=== PATIENT | female | born 1980 | race Caucasian/White ===

== ENCOUNTER 2017-04-14 09:35 | Inpatient (IN) ==
[2017-04-14] MEDS ORDERED: cefTRIAXone 1,000 MG in SODIUM CHLORIDE 0.9% 100 ML IV STA (10:52)
[2017-04-14] MEDS ORDERED: SODIUM CHLORIDE 0.9% 1,000 ML IV STA (10:52)
[2017-04-14] MEDS ORDERED: VANCOMYCIN INJ 750 MG in SODIUM CHLORIDE 0.9% 250 ML IV STA (10:52)
[2017-04-14] MEDS ORDERED: VANCOMYCIN INJ 1,000 MG in SODIUM CHLORIDE 0.9% 250 ML IV STA (11:07)
[2017-04-14] MEDS ORDERED: cefTRIAXone 1,000 MG VIAL ONE (11:16)
[2017-04-14 11:17] LABS: Basophils # 0.1 10*3/uL (0.0-0.2); Basophils % 0.2 % (0.0-0.8); Hematocrit 44.1 VOL% (35.7-47.0); Hemoglobin 15.4 GM/DL (12.0-16.0); Immature Granulocytes % 0.4 %; Immature Granulocytes Absolute 0.09 #; Lymphocytes # 1.1 10*3/uL (1.4-4.0); Lymphocytes % 5.3 % (21.3-54.2); Mean Corpuscular HGB Conc 34.9 GM/DL (32-36); Mean Corpuscular Hemoglobin 32 PG (27-34); Mean Corpuscular Volume 92.3 FL (87-102); Mean Platelet Volume 10.9 FL (9.6-12.0); Neutrophils # 17.9 10*3/uL (1.4-7.4); Neutrophils % 89.1 % (38.7-73.9); Platelet Count 261 T/CUMM (130-400); Red Blood Count 4.78 MC/CUMM (3.8-5.5); Red Cell Distribution Width 11.7 % (9.3-17.3); White Blood Count 20.1 T/CUMM (4-12)
[2017-04-14] MEDS ORDERED: VANCOMYCIN INJ 1,000 MG in SODIUM CHLORIDE 0.45% 250 ML IV STA (11:19)
[2017-04-14] MEDS ORDERED: VANCOMYCIN 1,000 MG VIAL ONE (11:23)
[2017-04-14 11:51] LABS: Albumin 2.9 G/DL (3.4-5.0); Bilirubin,Total 0.5 MG/DL (0.2-1.0); Calcium 8.7 MG/DL (8.5-10.1); Osmolality,Calculated 264.4 MOS/KG (273-304); Potassium 3.8 MMOL/L (3.5-5.1); Total Protein 7.1 G/DL (6.4-8.3)
[2017-04-14 13:25] LABS: Hypochromasia 1+; Lymphocytes 7 % (20-55); Platelet Estimate Adequate; Segmented Neutrophils 88 % (50-85); Total Cells Counted 100
[2017-04-14] MEDS ORDERED: ACETAMINOPHEN 325 MG TABLET PO PRN (14:49)
[2017-04-14] MEDS ORDERED: NICOTINE 21 MG/24 HR PATCH TRANSDERM PRN (15:34)
[2017-04-14] MEDS ORDERED: diphenhydrAMINE CAP 25 MG CAPSULE PO PRN (15:34)
[2017-04-14] MEDS ORDERED: HYDROmorphone 2 MG/1 ML VIAL ONE (15:53)
[2017-04-14] MEDS: SODIUM CHLORIDE 0.9% 1,000 ML IV SCH (15:59)
[2017-04-14] MEDS ORDERED: HYDROmorphone 2 MG/1 ML VIAL IV SCH (16:00)
[2017-04-14] MEDS: PIPERACILLIN/TAZOBACTAM 3,375 MG in SODIUM CHLORIDE 0.9% 100 ML IV SCH (18:34)
[2017-04-14] MEDS: HYDROmorphone 2 MG/1 ML VIAL IV PRN (19:37)
[2017-04-15] MEDS: DOCUSATE SODIUM 100 MG CAPSULE PO SCH ×3 (00:31→21:13)
[2017-04-15] MEDS: VANCOMYCIN INJ 750 MG in SODIUM CHLORIDE 0.9% 150 ML IV SCH ×3 (00:32→21:18)
[2017-04-15] MEDS: ONDANSETRON 4 MG/2 ML VIAL IV PRN ×3 (00:41→21:20)
[2017-04-15] MEDS: HYDROmorphone 2 MG/1 ML VIAL IV PRN ×3 (00:42→21:21)
[2017-04-15] MEDS: PIPERACILLIN/TAZOBACTAM 3,375 MG in SODIUM CHLORIDE 0.9% 100 ML IV SCH ×3 (03:12→21:13)
[2017-04-15 06:45] LABS: Basophils # 0.1 10*3/uL (0.0-0.2); Basophils % 0.4 % (0.0-0.8); Eosinophils % 0.1 % (0.00-10.9); Hematocrit 43.3 VOL% (35.7-47.0); Immature Granulocytes % 0.6 %; Immature Granulocytes Absolute 0.12 #; Lymphocytes % 5.1 % (21.3-54.2); Mean Corpuscular HGB Conc 34.6 GM/DL (32-36); Mean Corpuscular Hemoglobin 33 PG (27-34); Mean Corpuscular Volume 93.9 FL (87-102); Monocytes # 1.3 10*3/uL (0.11-0.8); Neutrophils # 16.7 10*3/uL (1.4-7.4); Neutrophils % 86.8 % (38.7-73.9); Platelet Count 273 T/CUMM (130-400); Red Blood Count 4.61 MC/CUMM (3.8-5.5); Red Cell Distribution Width 11.7 % (9.3-17.3); White Blood Count 19.3 T/CUMM (4-12)
[2017-04-15] MEDS: SODIUM CHLORIDE 0.9% 1,000 ML IV SCH ×3 (06:58→14:28)
[2017-04-15 07:19] LABS: Albumin 2.5 G/DL (3.4-5.0); Bilirubin,Total 0.7 MG/DL (0.2-1.0); Calcium 8.5 MG/DL (8.5-10.1); Magnesium 1.8 MG/DL (1.8-2.4); Osmolality,Calculated 269.1 MOS/KG (273-304); Potassium 4.4 MMOL/L (3.5-5.1); Total Protein 5.7 G/DL (6.4-8.3)
[2017-04-15] MEDS: PANTOPRAZOLE 40 MG TABLET PO SCH (09:57)
[2017-04-15] MEDS ORDERED: LIDOCAINE 1%/EPI INJ 20 ML VIAL ONE (10:38)
[2017-04-15] MEDS ORDERED: BUPIVACAINE 0.25% 50 ML VIAL ONE (10:38)
[2017-04-15] MEDS ORDERED: SCOPOLAMINE 1.5 MG PATCH TRANSDERM ONE ×2 (10:44→10:46)
[2017-04-15] MEDS ORDERED: SEVOFLURANE 1 UNIT/15 MINUTE INH ONE (11:56)
[2017-04-15] MEDS ORDERED: PROPOFOL 200 MG/20 ML VIAL IV ONE (11:56)
[2017-04-15] MEDS ORDERED: SUCCINYLCHOLINE 200 MG/10 ML VIAL ONE (11:57)
[2017-04-15] MEDS ORDERED: fentaNYL 100 MCG/2 ML VIAL ONE (11:57)
[2017-04-15] MEDS ORDERED: DEXAMETHASONE 10 MG/1 ML VIAL ONE (11:57)
[2017-04-15] MEDS ORDERED: ONDANSETRON 4 MG/2 ML VIAL ONE ×2 (11:57→12:26)
[2017-04-15] MEDS ORDERED: ROCURONIUM 100 MG/10 ML VIAL IV ONE (11:58)
[2017-04-15] MEDS ORDERED: HYDROmorphone 2 MG/1 ML VIAL ONE (12:26)
[2017-04-15] MEDS ORDERED: ONDANSETRON 4 MG/2 ML VIAL IV PRN (12:29)
[2017-04-15] MEDS ORDERED: HYDROmorphone 2 MG/1 ML VIAL IV PRN (12:29)
[2017-04-15] MEDS ORDERED: LACTATED RINGERS 1,000 ML IV SCH (12:30)
[2017-04-16] MEDS: SODIUM CHLORIDE 0.9% 1,000 ML IV SCH ×4 (00:13→23:22)
[2017-04-16] MEDS: PIPERACILLIN/TAZOBACTAM 3,375 MG in SODIUM CHLORIDE 0.9% 100 ML IV SCH ×2 (04:40→16:10)
[2017-04-16 07:22] LABS: Basophils % 0.2 % (0.0-0.8); Hematocrit 35.8 VOL% (35.7-47.0); Immature Granulocytes % 0.6 %; Immature Granulocytes Absolute 0.13 #; Lymphocytes # 1.4 10*3/uL (1.4-4.0); Lymphocytes % 5.8 % (21.3-54.2); Mean Corpuscular HGB Conc 34.9 GM/DL (32-36); Mean Corpuscular Hemoglobin 33 PG (27-34); Mean Platelet Volume 10.9 FL (9.6-12.0); Monocytes # 1.9 10*3/uL (0.11-0.8); Monocytes % 8.3 % (1.7-12.7); Neutrophils # 19.8 10*3/uL (1.4-7.4); Neutrophils % 85.1 % (38.7-73.9); Platelet Count 253 T/CUMM (130-400); Red Blood Count 3.85 MC/CUMM (3.8-5.5); Red Cell Distribution Width 11.8 % (9.3-17.3); White Blood Count 23.3 T/CUMM (4-12)
[2017-04-16 07:25] LABS: Hemoglobin 12.5 GM/DL (12.0-16.0)
[2017-04-16] MEDS: HYDROmorphone 2 MG/1 ML VIAL IV PRN ×3 (07:29→20:26)
[2017-04-16 07:37] LABS: Giant Platelets Few; Hypochromasia 1+; Lymphocytes 4 % (20-55); Ovalocytes Slight; Platelet Estimate Adequate; Segmented Neutrophils 91 % (50-85); Total Cells Counted 100
[2017-04-16] MEDS: SODIUM HYPOCHLORITE 0.25% IRRIG 473 ML BOTTLE TOP SCH (07:45)
[2017-04-16 07:46] LABS: Bilirubin,Total 0.5 MG/DL (0.2-1.0); Potassium 4.4 MMOL/L (3.5-5.1)
[2017-04-16] MEDS: VANCOMYCIN INJ 750 MG in SODIUM CHLORIDE 0.9% 150 ML IV SCH (09:08)
[2017-04-16] MEDS: DOCUSATE SODIUM 100 MG CAPSULE PO SCH ×2 (09:09→20:26)
[2017-04-16] MEDS: PANTOPRAZOLE 40 MG TABLET PO SCH (09:09)
[2017-04-16 10:59] LABS: Osmolality,Calculated 276.1 MOS/KG (273-304); Potassium 4.1 MMOL/L (3.5-5.1)
[2017-04-16] MEDS ORDERED: SODIUM CHLORIDE 0.9% 1,000 ML IV ONE (11:08)
[2017-04-16] MEDS: LINEZOLID INJ 600 MG in PREMIX 1 EACH IV SCH (12:32)
[2017-04-16] MEDS: ONDANSETRON 4 MG/2 ML VIAL IV PRN (12:32)
[2017-04-16] MEDS ORDERED: PROMETHAZINE INJ 12.5 MG in SODIUM CHLORIDE 0.9% 50 ML IV PRN (14:19)
[2017-04-16] MEDS: PROMETHAZINE 25 MG/1 ML VIAL IM PRN (14:46)
[2017-04-16 16:22] LABS: HIV Antigen/Antibody Result Nonreactive (Nonreactive)
[2017-04-16 18:29] LABS: Apearance,Urine Slightly Hazy (Clear); Bacteria,Urine Occasional /HPF (Few); Bilirubin,Urine Negative (Negative); Blood, Urine Large mg/dL (Negative); Glucose,Urine (UA) Negative (Negative); Ketones,Urine Negative (Negative); Nitrite,Urine Negative (Negative); Protein,Urine Negative; RBC,Urine 2 /HPF (0-4); Squamous Epithelial Cell,Urine Occasional /HPF (0-10); Urine Color Straw (Yellow); Urine Specific Gravity 1.003 (1.001-1.035); Urine Urobilinogen < 2.0 EU/DL (0.2-1.0); WBC,Urine 2 /HPF (0-6)
[2017-04-16 20:05] LABS: Barbiturates Screen,Urine Negative (Negative); Benzodiazepines Screen,Urine Negative (Negative); Cannabinoid Screen,Urine Positive (Negative); Opiate Screen,Urine Positive (Negative); Phencyclidine Screen,Urine Negative (Negative)
[2017-04-17] MEDS: LINEZOLID INJ 600 MG in PREMIX 1 EACH IV SCH ×3 (00:08→23:23)
[2017-04-17] MEDS: PROMETHAZINE 25 MG/1 ML VIAL IM PRN (01:58)
[2017-04-17] MEDS: HYDROmorphone 2 MG/1 ML VIAL IV PRN ×5 (02:05→21:11)
[2017-04-17] MEDS: PIPERACILLIN/TAZOBACTAM 3,375 MG in SODIUM CHLORIDE 0.9% 100 ML IV SCH ×2 (05:02→16:45)
[2017-04-17 06:31] LABS: Basophils % 0.2 % (0.0-0.8); Eosinophils % 0.2 % (0.00-10.9); Hemoglobin 11.1 GM/DL (12.0-16.0); Immature Granulocytes % 0.6 %; Immature Granulocytes Absolute 0.07 #; Lymphocytes # 1.1 10*3/uL (1.4-4.0); Lymphocytes % 8.8 % (21.3-54.2); Mean Corpuscular HGB Conc 34.7 GM/DL (32-36); Mean Corpuscular Hemoglobin 32 PG (27-34); Mean Corpuscular Volume 93.3 FL (87-102); Mean Platelet Volume 10.9 FL (9.6-12.0); Monocytes % 7.9 % (1.7-12.7); Neutrophils # 10.2 10*3/uL (1.4-7.4); Neutrophils % 82.3 % (38.7-73.9); Platelet Count 240 T/CUMM (130-400); Red Blood Count 3.43 MC/CUMM (3.8-5.5); Red Cell Distribution Width 11.9 % (9.3-17.3); White Blood Count 12.3 T/CUMM (4-12)
[2017-04-17 06:52] LABS: Calcium 7.8 MG/DL (8.5-10.1); Magnesium 2.1 MG/DL (1.8-2.4); Osmolality,Calculated 279.8 MOS/KG (273-304); Potassium 4.2 MMOL/L (3.5-5.1)
[2017-04-17] MEDS: DOCUSATE SODIUM 100 MG CAPSULE PO SCH ×2 (08:42→21:01)
[2017-04-17] MEDS: PANTOPRAZOLE 40 MG TABLET PO SCH (08:42)
[2017-04-17] MEDS: SODIUM HYPOCHLORITE 0.25% IRRIG 473 ML BOTTLE TOP SCH (08:44)
[2017-04-17] MEDS: SODIUM CHLORIDE 0.9% 1,000 ML IV SCH ×3 (08:44→23:32)
[2017-04-17] MEDS: ONDANSETRON 4 MG/2 ML VIAL IV PRN ×2 (16:46→21:01)
[2017-04-17 21:47] LABS: Apearance,Urine Slightly Hazy (Clear); Bacteria,Urine Occasional /HPF (Few); Bilirubin,Urine Negative (Negative); Blood, Urine Large mg/dL (Negative); Glucose,Urine (UA) Negative (Negative); Ketones,Urine Negative (Negative); Nitrite,Urine Negative (Negative); Protein,Urine Negative; RBC,Urine <1 /HPF (0-4); Squamous Epithelial Cell,Urine Occasional /HPF (0-10); Urine Color Straw (Yellow); Urine Specific Gravity 1.004 (1.001-1.035); Urine Urobilinogen < 2.0 EU/DL (0.2-1.0); WBC,Urine 1 /HPF (0-6)
[2017-04-18] MEDS: ONDANSETRON 4 MG/2 ML VIAL IV PRN ×2 (01:30→19:52)
[2017-04-18] MEDS: HYDROmorphone 2 MG/1 ML VIAL IV PRN ×5 (01:33→21:57)
[2017-04-18] MEDS: PROMETHAZINE 25 MG/1 ML VIAL IM PRN (02:38)
[2017-04-18] MEDS: PIPERACILLIN/TAZOBACTAM 3,375 MG in SODIUM CHLORIDE 0.9% 100 ML IV SCH ×2 (04:12→16:27)
[2017-04-18 06:37] LABS: Basophils % 0.3 % (0.0-0.8); Eosinophils # 0.1 10*3/uL (0.0-0.87); Eosinophils % 0.6 % (0.00-10.9); Hematocrit 33.9 VOL% (35.7-47.0); Hemoglobin 11.9 GM/DL (12.0-16.0); Immature Granulocytes % 0.3 %; Immature Granulocytes Absolute 0.04 #; Lymphocytes # 1.1 10*3/uL (1.4-4.0); Lymphocytes % 9.6 % (21.3-54.2); Mean Corpuscular HGB Conc 35.1 GM/DL (32-36); Mean Corpuscular Hemoglobin 32 PG (27-34); Mean Corpuscular Volume 92.1 FL (87-102); Mean Platelet Volume 10.4 FL (9.6-12.0); Monocytes # 0.9 10*3/uL (0.11-0.8); Monocytes % 8.2 % (1.7-12.7); Neutrophils # 9.3 10*3/uL (1.4-7.4); Platelet Count 238 T/CUMM (130-400); Red Blood Count 3.68 MC/CUMM (3.8-5.5); Red Cell Distribution Width 11.4 % (9.3-17.3); White Blood Count 11.5 T/CUMM (4-12)
[2017-04-18 07:10] LABS: Albumin 1.8 G/DL (3.4-5.0); Bilirubin,Direct 0.12 MG/DL (0.0-0.20); Bilirubin,Indirect 0.5 MG/DL (0.0-1.0); Bilirubin,Total 0.6 MG/DL (0.2-1.0); Magnesium 2.3 MG/DL (1.8-2.4); Potassium 4.1 MMOL/L (3.5-5.1); Total Protein 4.7 G/DL (6.4-8.3)
[2017-04-18] MEDS: DOCUSATE SODIUM 100 MG CAPSULE PO SCH ×2 (08:02→20:00)
[2017-04-18] MEDS: SODIUM HYPOCHLORITE 0.25% IRRIG 473 ML BOTTLE TOP SCH (08:02)
[2017-04-18] MEDS: SODIUM CHLORIDE 0.9% 1,000 ML IV SCH ×2 (08:02→14:44)
[2017-04-18] MEDS: PANTOPRAZOLE 40 MG TABLET PO SCH (08:03)
[2017-04-18] MEDS: LINEZOLID INJ 600 MG in PREMIX 1 EACH IV SCH (11:11)
[2017-04-18] MEDS: oxyCODONE/ACETAMINOPHEN 5-325 MG TABLET PO PRN (19:51)
[2017-04-18] MEDS: ZALEPLON 5 MG CAPSULE PO PRN (20:00)
[2017-04-19] MEDS: LINEZOLID INJ 600 MG in PREMIX 1 EACH IV SCH ×3 (00:08→23:43)
[2017-04-19] MEDS: SODIUM CHLORIDE 0.9% 1,000 ML IV SCH ×3 (01:51→14:43)
[2017-04-19] MEDS: ONDANSETRON 4 MG/2 ML VIAL IV PRN ×2 (02:00→13:36)
[2017-04-19] MEDS: PROMETHAZINE 25 MG/1 ML VIAL IM PRN ×2 (03:12→09:50)
[2017-04-19] MEDS: HYDROmorphone 2 MG/1 ML VIAL IV PRN ×3 (03:13→16:47)
[2017-04-19] MEDS: PIPERACILLIN/TAZOBACTAM 3,375 MG in SODIUM CHLORIDE 0.9% 100 ML IV SCH ×2 (04:18→16:48)
[2017-04-19] MEDS: SODIUM HYPOCHLORITE 0.25% IRRIG 473 ML BOTTLE TOP SCH (09:49)
[2017-04-19] MEDS: PANTOPRAZOLE 40 MG TABLET PO SCH (09:49)
[2017-04-19] MEDS: DOCUSATE SODIUM 100 MG CAPSULE PO SCH ×2 (09:49→21:19)
[2017-04-19 10:43] LABS: Osmolality,Calculated 274.1 MOS/KG (273-304)
[2017-04-19] MEDS: oxyCODONE/ACETAMINOPHEN 5-325 MG TABLET PO PRN ×2 (13:36→21:19)
[2017-04-20] MEDS: HYDROmorphone 2 MG/1 ML VIAL IV PRN ×3 (01:12→15:06)
[2017-04-20] MEDS: ONDANSETRON 4 MG/2 ML VIAL IV PRN ×3 (01:13→20:31)
[2017-04-20] MEDS: PIPERACILLIN/TAZOBACTAM 3,375 MG in SODIUM CHLORIDE 0.9% 100 ML IV SCH ×2 (04:51→18:19)
[2017-04-20] MEDS: SODIUM CHLORIDE 0.9% 1,000 ML IV SCH ×5 (04:52→23:55)
[2017-04-20] MEDS: oxyCODONE/ACETAMINOPHEN 5-325 MG TABLET PO PRN ×2 (06:38→20:31)
[2017-04-20 07:28] LABS: Calcium 8.1 MG/DL (8.5-10.1); Osmolality,Calculated 278.7 MOS/KG (273-304); Potassium 3.8 MMOL/L (3.5-5.1)
[2017-04-20] MEDS: DOCUSATE SODIUM 100 MG CAPSULE PO SCH ×2 (08:36→20:52)
[2017-04-20] MEDS: PANTOPRAZOLE 40 MG TABLET PO SCH (08:36)
[2017-04-20] MEDS: SODIUM HYPOCHLORITE 0.25% IRRIG 473 ML BOTTLE TOP SCH (10:09)
[2017-04-20] MEDS: LINEZOLID INJ 600 MG in PREMIX 1 EACH IV SCH (12:40)
[2017-04-20] MEDS: PROMETHAZINE 25 MG/1 ML VIAL IM PRN (14:01)
[2017-04-20] MEDS: ZALEPLON 5 MG CAPSULE PO PRN (20:36)
[2017-04-21] MEDS: LINEZOLID INJ 600 MG in PREMIX 1 EACH IV SCH ×2 (01:21→12:23)
[2017-04-21] MEDS: SODIUM CHLORIDE 0.9% 1,000 ML IV SCH ×3 (04:00→14:53)
[2017-04-21] MEDS: PIPERACILLIN/TAZOBACTAM 3,375 MG in SODIUM CHLORIDE 0.9% 100 ML IV SCH ×2 (04:08→16:31)
[2017-04-21] MEDS: oxyCODONE/ACETAMINOPHEN 5-325 MG TABLET PO PRN ×5 (04:09→21:16)
[2017-04-21] MEDS: ONDANSETRON 4 MG/2 ML VIAL IV PRN (04:13)
[2017-04-21 06:52] LABS: Basophils % 0.3 % (0.0-0.8); Eosinophils # 0.2 10*3/uL (0.0-0.87); Eosinophils % 1.6 % (0.00-10.9); Hematocrit 27.7 VOL% (35.7-47.0); Hemoglobin 9.6 GM/DL (12.0-16.0); Immature Granulocytes % 0.6 %; Immature Granulocytes Absolute 0.07 #; Lymphocytes # 1.4 10*3/uL (1.4-4.0); Lymphocytes % 12.6 % (21.3-54.2); Mean Corpuscular HGB Conc 34.7 GM/DL (32-36); Mean Corpuscular Hemoglobin 32 PG (27-34); Mean Corpuscular Volume 91.4 FL (87-102); Mean Platelet Volume 10.6 FL (9.6-12.0); Monocytes # 0.7 10*3/uL (0.11-0.8); Monocytes % 6.5 % (1.7-12.7); Neutrophils # 8.4 10*3/uL (1.4-7.4); Neutrophils % 78.4 % (38.7-73.9); Platelet Count 321 T/CUMM (130-400); Red Blood Count 3.03 MC/CUMM (3.8-5.5); Red Cell Distribution Width 11.7 % (9.3-17.3); White Blood Count 10.8 T/CUMM (4-12)
[2017-04-21] MEDS: SODIUM HYPOCHLORITE 0.25% IRRIG 473 ML BOTTLE TOP SCH (09:22)
[2017-04-21] MEDS: DOCUSATE SODIUM 100 MG CAPSULE PO SCH ×3 (09:22→21:18)
[2017-04-21] MEDS: PANTOPRAZOLE 40 MG TABLET PO SCH (09:22)
[2017-04-21] MEDS: ZALEPLON 5 MG CAPSULE PO PRN (21:16)
[2017-04-22] MEDS: LINEZOLID INJ 600 MG in PREMIX 1 EACH IV SCH ×2 (01:14→13:17)
[2017-04-22] MEDS: oxyCODONE/ACETAMINOPHEN 5-325 MG TABLET PO PRN ×2 (01:18→08:18)
[2017-04-22] MEDS: ONDANSETRON 4 MG/2 ML VIAL IV PRN ×2 (02:27→11:08)
[2017-04-22] MEDS: HYDROmorphone 2 MG/1 ML VIAL IV PRN (04:44)
[2017-04-22 06:40] LABS: Basophils % 0.3 % (0.0-0.8); Eosinophils # 0.2 10*3/uL (0.0-0.87); Eosinophils % 1.8 % (0.00-10.9); Immature Granulocytes % 0.7 %; Immature Granulocytes Absolute 0.07 #; Lymphocytes # 1.3 10*3/uL (1.4-4.0); Lymphocytes % 12.1 % (21.3-54.2); Mean Corpuscular HGB Conc 34.6 GM/DL (32-36); Mean Corpuscular Hemoglobin 32 PG (27-34); Mean Corpuscular Volume 91.9 FL (87-102); Mean Platelet Volume 10.6 FL (9.6-12.0); Monocytes # 0.8 10*3/uL (0.11-0.8); Monocytes % 7.5 % (1.7-12.7); Neutrophils # 8.4 10*3/uL (1.4-7.4); Neutrophils % 77.6 % (38.7-73.9); Platelet Count 317 T/CUMM (130-400); Red Blood Count 2.83 MC/CUMM (3.8-5.5); Red Cell Distribution Width 11.8 % (9.3-17.3); White Blood Count 10.8 T/CUMM (4-12)
[2017-04-22] MEDS: PIPERACILLIN/TAZOBACTAM 3,375 MG in SODIUM CHLORIDE 0.9% 100 ML IV SCH (06:59)
[2017-04-22 07:04] LABS: Calcium 8.1 MG/DL (8.5-10.1); Osmolality,Calculated 280.3 MOS/KG (273-304); Potassium 3.7 MMOL/L (3.5-5.1)
[2017-04-22 11:08] VITALS: BP 150/86
[2017-04-22] MEDS: DOCUSATE SODIUM 100 MG CAPSULE PO SCH (13:16)
[2017-04-22] MEDS: SODIUM HYPOCHLORITE 0.25% IRRIG 473 ML BOTTLE TOP SCH (13:16)
[2017-04-22] MEDS: SODIUM CHLORIDE 0.9% 1,000 ML IV SCH (13:16)
[2017-04-22] MEDS: PANTOPRAZOLE 40 MG TABLET PO SCH (13:17)
== END 2017-04-22 14:50 | disposition home or self-care (01) | DRG 500 ==
LOC: N.ED 09:35 → SUATTDRO 14:50 → N.EDINP 14:50 → N.5E 17:05
PROVIDERS: ADMIT Internal Medicine; ATTEND Internal Medicine